=== PATIENT | male | born 1980 | race African-American/Black ===

== ENCOUNTER 2020-09-22 16:37 | Emergency (ER) | payer OTHER ==
[~2020-09-22] VITALS: Ht 180.3 cm; Wt 81.7 kg
[2020-09-22 17:50] VITALS: BP 115/73
== END 2020-09-22 17:50 | disposition home or self-care (01) ==
LOC: M.ERS 16:37
DX: Z20.828 Contact with and (suspected) exposure to other viral communicable diseases (principal)

== ENCOUNTER 2021-01-13 07:50 | Emergency (ER) | payer OTHER ==
[~2021-01-13] VITALS: Ht 180.3 cm; Wt 86.2 kg
[2021-01-13] MEDS ORDERED: BLEPH-105 ML OPHTHALMIC (08:23)
[2021-01-13 08:28] VITALS: BP 134/80
== END 2021-01-13 08:29 | disposition home or self-care (01) ==
LOC: M.ERS 07:50
DX: H10.9 Unspecified conjunctivitis (principal)